=== PATIENT | male | born 1950 | race African-American/Black ===

== ENCOUNTER 2024-10-11 05:59 | Emergency (ER) | payer MEDICARE ==
[2024-10-11] MEDS ORDERED: Ondansetron ODT 4 MG TAB ONE (06:43)
== END 2024-10-11 08:25 | disposition home or self-care (01) ==
LOC: ERS 05:59
DX: R05.9 Cough, unspecified (principal); R11.0 Nausea; I10 Essential (primary) hypertension; I48.91 Unspecified atrial fibrillation; Z79.01 Long term (current) use of anticoagulants; Z79.899 Other long term (current) drug therapy; Z96.641 Presence of right artificial hip joint
CPT/HCPCS: 71046; 87428; Q0162